=== PATIENT | male | born 2000 | race Caucasian/White ===

== ENCOUNTER 2023-11-03 13:07 | Emergency (ER) | payer SELFPAY ==
[2023-11-03 14:23] LABS: SARS-CoV-2 Antigen CONTROL BLUE LINE VIS/BG OK; SARS-CoV-2 Antigen Rapid Res Negative (Negative)
--- NOTE | 2023-11-03 15:14 | ER ---
Nurse's Notes [facility] Name: Berto Lane Age: 23 yrs Sex: Male : 2000 Arrival Date: 11/03/2023 Time: 13:07 Bed 15 Private MD: Diagnosis: Acute pharyngitis, unspecified;Dorsalgia, unspecified Presentation: 11/02 13:14 Chief complaint: Patient states: Pt c/o tingling in the back, congestion and sore dd2 throat x2 days. Coronavirus screen: congestion, runny nose, sore throat. Ebola Screen: No symptoms or risks identified at this time. Initial Sepsis Screen: Does the patient meet any 2 criteria? No. Patient's initial sepsis screen is negative. Does the patient have a suspected source of infection? No. Patient's initial sepsis screen is negative. Risk Assessment: Do you want to hurt yourself or someone else? Patient reports no desire to harm self or others. Onset of symptoms is unknown. 13:14 Method Of Arrival: Ambulatory dd2 13:14 Acuity: VALE 4 dd2 Triage Assessment: 13:16 General: Appears in no apparent distress. Behavior is calm, cooperative, appropriate dd2 for age. Pain: Complains of pain in thoracic area. Musculoskeletal: Range of motion: intact in all extremities, Reports pain in back. Historical: - Allergies: 13:16 No Known Allergies; dd2 - Home Meds: 13:16 None [Active]; dd2 - PMHx: 13:16 None; dd2 - PSHx: 13:16 None; dd2 - Immunization history:: Adult Immunizations unknown. - Infectious Disease History:: Denies. - Social history:: Smoking status: Patient reports the use of cigarette tobacco products, smokes one pack cigarettes per day. Reported history of juuling and/or vaping. Screenin:40 [facility] ED Fall Risk Assessment (Adult) History of falling in the last 3 months, kj2 including since admission No falls in past 3 months (0 pts) Confusion or Disorientation No (0 pts) Intoxicated or Sedated No (0 pts) Impaired Gait No (0 pts) Mobility Assist Device Used No (0 pt) Altered Elimination No (0 pt) Score/Fall Risk Level 0 - 2 = Low Risk Maintained a safe environment, Educated pt \T\ family on fall prevention, incl call for assistance when getting out of bed, Hourly rounding (assess needs \T\ fall precautionary measures) done. Abuse screen: Denies threats or abuse. Denies injuries from another. Nutritional screening: No deficits noted. Tuberculosis screening: No symptoms or risk factors identified. Assessment: 13:38 General: Appears in no apparent distress. uncomfortable, Behavior is calm, cooperative. kj2 Pain: Complains of pain in back and thoracic area. Neuro: Level of Consciousness is awake, alert, Oriented to person, place, time, situation. Cardiovascular: Patient's skin is warm and dry. Respiratory: Airway is patent Respiratory effort is unlabored. GI: No deficits noted. : No deficits noted. 14:42 Reassessment: Patient appears in no apparent distress at this time. Patient and/or kj2 family updated on plan of care and expected duration. Pain level reassessed. Patient is alert, oriented x 3, equal unlabored respirations, skin warm/dry/pink. Vital Signs: 13:14 BP 139 / 74; Pulse 86; Resp 15; Temp 97.1; Pulse Ox 100% ; Weight 108.86 kg; Height 5 dd2 ft. 10 in. ; 13:38 BP 114 / 71; Pulse 78; Resp 18; Temp 98; Pulse Ox 97% on R/A; kj2 14:41 BP 116 / 79; Pulse 79; Resp 18; Temp 98; Pulse Ox 98% on R/A; kj2 15:41 BP 111 / 77; Pulse 78; Resp 18; Temp 97.9; Pulse Ox 100% on R/A; kj2 13:14 Body Mass Index 34.44 (108.86 kg, 177.8 cm) dd2 ED Course: 13:13 Patient arrived in ED. mg5 13:14 Tad Arora PA is PHCP. cp 13:14 [place] Ortiz DO is Attending Physician. cp 13:16 Triage completed. dd2 13:16 Arm band placed on left wrist. Patient placed in waiting room, in view of staff dd2 members, Patient notified of wait time. 13:37 Zena Santiago, TELMA is Primary Nurse. kj2 13:40 Patient has correct armband on for positive identification. Bed in low position. Call kj2 light in reach. Provided Education on: call light, fall precautions. 13:40 No provider procedures requiring assistance completed. kj2 15:38 Patient did not have IV access during this emergency room visit. kj2 Administered Medications: No medications were administered Medication: 13:40 VIS not applicable for this client. kj2 Outcome: 15:14 Discharge ordered by . don 15:37 Discharged to home ambulatory, kj2 15:37 Condition: stable 15:37 Discharge instructions given to patient, Instructed on discharge instructions, follow up and referral plans. medication usage, Demonstrated understanding of instructions, follow-up care, medications, Prescriptions given X 1, 15:42 Patient left the ED. kj2 Signatures: Tad Arora PA PA cp Gardner, [place] mg5 Zena Santiago RN RN kj2 MEGHA CHOU RN RN dd2
--- NOTE | 2023-11-03 15:14 | EDPHYS ---
Physician Documentation [facility] Name: Berto Lane Age: 23 yrs Sex: Male : 2000 Arrival Date: 11/03/2023 Time: 13:07 Bed 15 Private MD: ED Physician [place] Ortiz HPI: 11/02 13:45 This 23 yrs old Male presents to ER via Ambulatory with complaints of Cough and Sore cp Throat. 13:45 The patient presents with pain that is acute, with no known mechanism of injury. The cp symptoms are located in the mid and low back, intermittent. Onset: The symptoms/episode began/occurred for weeks. Location: upper back. Patient reports he was told by employer to be checked due to sore throat, cough, and not feeling well. Needs note to return to work. Historical: - Allergies: 13:16 No Known Allergies; dd2 - Home Meds: 13:16 None [Active]; dd2 - PMHx: 13:16 None; dd2 - PSHx: 13:16 None; dd2 - Immunization history:: Adult Immunizations unknown. - Infectious Disease History:: Denies. - Social history:: Smoking status: Patient reports the use of cigarette tobacco products, smokes one pack cigarettes per day. Reported history of juuling and/or vaping. ROS: 13:50 Constitutional: Negative for fever, cp 13:50 Eyes: Negative for injury, pain, redness, and discharge, cp 13:50 ENT: Positive for sore throat, Negative for drainage from ear(s), ear pain, difficulty cp swallowing, difficulty handling secretions, 13:50 Cardiovascular: Negative for chest pain, 13:50 Respiratory: Positive for cough, Negative for shortness of breath, wheezing, 13:50 Abdomen/GI: Negative for abdominal pain, vomiting, diarrhea, constipation, 13:50 Back: Positive for pain at rest, pain with movement, 13:50 Neuro: Negative for altered mental status, dizziness, headache, weakness, 13:50 All other systems are negative, Exam: 13:55 Constitutional: The patient appears in no acute distress, alert, awake, non-toxic, well cp developed, well nourished, 13:55 Head/Face: Normocephalic, atraumatic. cp 13:55 Eyes: Periorbital structures: appear normal, Conjunctiva: normal, no exudate, no injection, Sclera: no appreciated abnormality, Lids and lashes: appear normal, bilaterally, 13:55 ENT: External ear(s): are unremarkable, Nose: is normal, Mouth: Lips: moist, Oral mucosa: pink and intact, moist, Posterior pharynx: Airway: no evidence of obstruction, patent, Tonsils: no enlargement, no erythema, no exudate, erythema, is not appreciated, exudate, is not appreciated, 13:55 Neck: ROM/movement: is normal, is supple, without pain, no range of motions limitations, no meningismus, 13:55 Chest/axilla: Inspection: normal, 13:55 Cardiovascular: Rate: normal, Rhythm: regular, 13:55 Respiratory: the patient does not display signs of respiratory distress, Respirations: normal, no use of accessory muscles, no retractions, labored breathing, is not present, Breath sounds: are clear throughout, no decreased breath sounds, 13:55 Abdomen/GI: Inspection: abdomen appears normal, Palpation: abdomen is soft and non-tender, in all quadrants, 13:55 Neuro: Orientation: to person, place \T\ time. Mentation: is normal, Motor: moves all fours, strength is normal, Sensation: is normal, Vital Signs: 13:14 BP 139 / 74; Pulse 86; Resp 15; Temp 97.1; Pulse Ox 100% ; Weight 108.86 kg; Height 5 dd2 ft. 10 in. ; 13:38 BP 114 / 71; Pulse 78; Resp 18; Temp 98; Pulse Ox 97% on R/A; kj2 14:41 BP 116 / 79; Pulse 79; Resp 18; Temp 98; Pulse Ox 98% on R/A; kj2 15:41 BP 111 / 77; Pulse 78; Resp 18; Temp 97.9; Pulse Ox 100% on R/A; kj2 13:14 Body Mass Index 34.44 (108.86 kg, 177.8 cm) dd2 MDM: 13:28 Patient medically screened. cp 15:10 Data reviewed: vital signs, nurses notes, lab test result(s), and as a result, I will cp discharge patient. 15:10 Differential diagnosis: COVID-19, strep throat, influenza. Counseling: I had a detailed cp discussion with the patient and/or guardian regarding the historical points, exam findings, and any diagnostic results supporting the discharge/admit diagnosis, lab results, to return to the emergency department if symptoms worsen or persist or if there are any questions or concerns that arise at home. 11/02 13:45 Order name: SARS RAPID; Complete Time: 14:38 cp 11/02 14:38 Interpretation: Reviewed. cp 11/02 13:45 Order name: Influenza Screen (a \T\ B); Complete Time: 15:06 cp 11/02 15:06 Interpretation: Reviewed. cp 11/02 13:45 Order name: Strep cp 11/02 14:38 Interpretation: Reviewed. cp 11/02 14:17 Order name: Throat Culture EDMS Administered Medications: No medications were administered Disposition: 14:40 I was immediately available on-site in the Emergency Department for consultation in the ms3 care of the patient. Disposition Summary: 11/03/23 15:14 Discharge Ordered Notes: Location: Home cp Problem: new cp Symptoms: have improved cp Condition: Stable cp Diagnosis - Acute pharyngitis, unspecified cp - Dorsalgia, unspecified cp Followup: cp - With: Private Physician - When: 2 - 3 days - Reason: Worsening of condition Discharge Instructions: - Discharge Summary Sheet cp - Acute Back Pain, Adult cp - Pharyngitis cp - Sore Throat cp - Form - Excuse from Work, School, or Physical Activity cp Forms: - Medication Reconciliation Form cp - Antibiotic Education cp - Prescription Opioid Use cp - Patient Portal Instructions cp - Leadership Thank You Letter cp Prescriptions: - Ibuprofen 800 mg Oral Tablet - take 1 tablet ORAL route every 8 hours As needed take with food; 30 tablet; cp Refills: 0, Product Selection Permitted Signatures: Dispatcher [employer] EDNJ Tad Arora PA PA cp Sims, Marcus, DO DO ms3 MEGHA CHOU RN RN dd2
[2023-11-03 16:27] VITALS: BP 111/77; TEMP 97.9; O2SAT 100
== END 2023-11-03 15:42 | disposition home or self-care (01) ==
LOC: ER 13:07
DX: J02.9 Acute pharyngitis, unspecified (principal); M54.9 Dorsalgia, unspecified; Z11.52 Encounter for screening for COVID-19; F17.210 Nicotine dependence, cigarettes, uncomplicated
CPT/HCPCS: 36415; 87070; 87081; 87804; 87811; 99283